=== PATIENT | male | born 1955 | race Caucasian/White ===

== ENCOUNTER 2018-01-13 18:01 | Inpatient (IN) ==
[2018-01-13] MEDS ORDERED: Aspirin 81 MG TAB.CHEW PO ONE (18:09)
--- NOTE | 2018-01-13 18:30 | Emergency Department Note ---
Disposition Clinical Impression: Elevated blood pressure reading Chest pain Qualifiers: Chest pain type: unspecified Qualified Code(s): R07.9 - Chest pain, unspecified Disposition: Admitted As Inpatient Condition: Good Referrals: Glory Torres MD [Primary Care Provider] - Yelena Kenny [Family Provider] - Forms: ED Satisfaction Letter Time of Disposition: 19:33 General Adult HPI - General Chief complaint: ED Chest Pain Stated complaint: CP,HTN Time Seen by Provider: 01/13/18 18:08 Source: patient Mode of arrival: ambulatory Limitations: no limitations Nursing Notes Reviewed: Yes Vital Signs Reviewed: Yes - History of Present Illness HPI Narrative: 62-year-old male with significant past medical history of hypertension, hyperlipidemia and diabetes presenting to the emergency Department chief complaint of chest pain. Patient states he has had chest pain on and off for the past couple of days along with worsening dyspnea. Patient was seen by his primary care physician today. They stated if he had any other chest pain to come to the emergency department. Patient states he had a stress test greater than 5 years ago. Has not followed up cardiology. Has no known stents or CABG. No COPD or asthma. He states his chest pain is an the lower sternum and radiates to the bilateral chest. Denies nausea or vomiting but does disclose diaphoresis with these symptoms. Patient has not tried anything at home for this. Patient states he notices his symptoms most when he is at rest. Pain Scale: 7 - Related Data Allergies Allergy/AdvReac Type Severity Reaction Status Date / Time No Known Allergies Allergy Verified 01/13/18 18:05 All systems ED: reviewed and negative except as stated. Cardiovascular: Reports: chest pain Respiratory: Reports: dyspnea Past Medical History - Past Medical History Attestation: Yes The following information was validated with the patient. Medical history: Reports: diabetes, hyperlipidemia, hypertension Psychiatric history: Reports: no psych history - Social History Smoking Status: Former smoker Smokeless Tobacco Status: No Alcohol use: Reports: none Drug use: Reports: none Physical Exam - General Limitations: no limitations General appearance: alert, in no apparent distress - Head Head exam: atraumatic, normocephalic, normal inspection - Eye Eye exam: Present: normal appearance. Absent: scleral icterus, conjunctival injection - ENT ENT exam: normal exam, mucous membranes moist - Neck Neck exam: Present: normal inspection, full ROM. Absent: tenderness, meningismus - Chest Chest inspection: Present: normal inspection, symmetric chest wall rise. Absent : tenderness, rash - Respiratory Respiratory exam: Present: normal lung sounds bilaterally. Absent: respiratory distress, wheezes - Cardiovascular Cardiovascular exam: Present: regular rate, normal rhythm, normal heart sounds - Abdominal Exam Abdominal exam: Present: soft, Non-Tender. Absent: distention, guarding, rebound - Extremities Exam Extremities exam: Present: normal inspection, full ROM - Neurological Exam Neurological exam: Present: alert, oriented X3 - Psychiatric Psychiatric exam: Present: normal affect, normal mood - Skin Skin exam: Present: warm, intact Course Course Narrative: 62-year-old male presenting to the emergency department for chest pain and dyspnea. Patient has had intermittent chest pain for the past few days. Seen by primary care physician today and told come to the emergency department if he has recurrent symptoms. Patient states he still having chest pain at this time. Has not had cardiac workup in greater than 5 years. We will perform a chest pain workup including troponin, EKG, chest x-ray. Also provide the patient with full dose aspirin and nitroglycerin for chest pain. Patient is alert and oriented 3 in the room with stable vital signs. Disposition most likely admission but pending results. Patient agrees this plan. - Reevaluation(s) Reevaluation #1: All patient's lab work and radiographs within normal limits. Patient's pain significantly better with sublingual nitroglycerin. Patient is alert and oriented 3 in the room. Stable vital signs. Blood pressure came down nicely with nitroglycerin. We will plan to admit the patient at this time for chest pain workup. Patient agrees with this plan. I spoke with the hospice on-call Dr. Loo who agrees to accept the patient at this time. Vital Signs Temperature 98.5 F 01/13/18 18:03 Pulse Rate 73 01/13/18 18:03 Respiratory Rate 18 01/13/18 18:03 Blood Pressure 195/106 01/13/18 18:03 O2 Sat by Pulse Oximetry 98 01/13/18 18:03 Temperature 98.5 F 01/13/18 18:03 Pulse Rate 73 01/13/18 18:03 Respiratory Rate 18 01/13/18 18:03 Blood Pressure 195/106 01/13/18 18:03 O2 Sat by Pulse Oximetry 98 01/13/18 18:03 Oxygen Delivery Oxygen Delivery Room Air Medical Decision Making - Medical Records Medical records reviewed: Yes I reviewed the patient's medical records. - Lab Data Lab results reviewed: Yes I reviewed the patient's lab results. Result diagrams: 01/13/18 18:21 01/13/18 18:21 Lab Results 01/13/18 01/13/18 01/13/18 Range/Units 18:21 18:21 18:21 WBC 7.5 (4.3-11.1) K/mcL RBC 4.54 (4.19-5.50) M/mcL Hgb 14.0 (12.9-16.9) g/dL Hct 40.4 (37.5-50.1) % MCV 89.0 (83.0-100.0) fL MCH 30.8 (28.0-33.3) pg MCHC 34.7 (31.6-35.5) g/dL RDW 12.8 (11.5-14.5) % Plt Count 212 (140-400) K/mcL MPV 9.6 (9.4-12.4) fL Immature Gran % 0.7 (0-4) % Seg Neutrophils % 58.0 % Lymphocytes % 29.3 % Monocytes % 6.7 % Eosinophils % 4.8 % Basophils % 0.5 % Neutrophils # 4.4 (1.6-8.9) K/mcL Lymphocytes # 2.2 (0.6-4.6) K/mcL Monocytes # 0.5 (0.0-1.3) K/mcL Eosinophils # 0.4 (0.0-0.6) K/mcL Basophils # 0.0 (0.0-0.2) K/mcL PT 10.3 (9.4-12.1) Seconds INR 1.0 APTT 27.1 (26.0-36.0) Seconds Sodium (136-145) mEq/L Potassium (3.5-5.1) mEq/L Chloride (98-107) mEq/L Carbon Dioxide (23-29) mEq/L BUN (8-23) mg/dL Creatinine (0.70-1.30) mg/dL Est GFR ( Amer) (> 60) Est GFR (Non-Af Amer) (> 60) BUN/Creatinine Ratio (6-26) Glucose (70-105) mg/dL Calculated Osmolality (280-300) Calcium (8.6-10.3) mg/dL Troponin I (< 0.04) ng/mL B-Natriuretic Peptide 10 (Less than 100) pg/mL 01/13/18 Range/Units 18:21 WBC (4.3-11.1) K/mcL RBC (4.19-5.50) M/mcL Hgb (12.9-16.9) g/dL Hct (37.5-50.1) % MCV (83.0-100.0) fL MCH (28.0-33.3) pg MCHC (31.6-35.5) g/dL RDW (11.5-14.5) % Plt Count (140-400) K/mcL MPV (9.4-12.4) fL Immature Gran % (0-4) % Seg Neutrophils % % Lymphocytes % % Monocytes % % Eosinophils % % Basophils % % Neutrophils # (1.6-8.9) K/mcL Lymphocytes # (0.6-4.6) K/mcL Monocytes # (0.0-1.3) K/mcL Eosinophils # (0.0-0.6) K/mcL Basophils # (0.0-0.2) K/mcL PT (9.4-12.1) Seconds INR APTT (26.0-36.0) Seconds Sodium 138 (136-145) mEq/L Potassium 3.9 (3.5-5.1) mEq/L Chloride 107 (98-107) mEq/L Carbon Dioxide 23 (23-29) mEq/L BUN 21 (8-23) mg/dL Creatinine 0.99 (0.70-1.30) mg/dL Est GFR ( Amer) > 60 (> 60) Est GFR (Non-Af Amer) > 60 (> 60) BUN/Creatinine Ratio 21 (6-26) Glucose 146 H (70-105) mg/dL Calculated Osmolality 292 (280-300) Calcium 8.9 (8.6-10.3) mg/dL Troponin I < 0.03 (< 0.04) ng/mL B-Natriuretic Peptide (Less than 100) pg/mL - Radiology Data Radiology results reviewed: Yes I reviewed the patient's radiology results. Chest X-Ray 01/13/18 18:09 IMPRESSION: No acute process. D/ / Paul Mccoy MD / Paul Mccoy MD Interpreting Provider: Paul Mccoy MD - EKG Data EKG #1 EKG attestation: Yes I reviewed and interpreted this EKG. EKG results narrative: Sinus rhythm. Nonspecific T wave abnormality. 72 bpm. SC interval 138, QRS 98 , QTc 385. No signs of acute ST segment elevation or ischemia. Attestation Statement - Attestation Attestation: I examined this patient and my medical decision-making was reviewed with the Resident Physician, Dr. Larry. I agree with the documented findings, disposition and treatment plan as described except to the extent set forth below. Patient's a 62-year-old male with history of hypertension, hyperlipidemia, diabetes who presents to the emergency department with chest discomfort. Patient has had cardiac evaluation in the past approximately 4 years ago had a heart catheter which he states was normal did not require stent placement. Patient also with significantly elevated blood pressure on arrival. Patient states he has been taking his medications as prescribed. Denies any associated shortness of breath, diaphoresis, no lightheadedness or syncope, no other associated symptoms. I agree with patient's physical exam findings as documented. Patient with significantly elevated blood pressure on arrival. Patient received aspirin and currently receiving a nitroglycerin trial with significant improvement in his blood pressure after one nitroglycerin pain has been reduced to 3 out of 10. We are continuing with nitroglycerin trial with the goal of pain-free. Patient's chest x-ray and lab evaluations all within normal limits. EKG showed a normal sinus rhythm with no acute ischemia. Patient will be admitted for further evaluation of chest pain and elevated blood pressure.
[2018-01-13 18:51] LABS: Basophils % 0.5 %; Eosinophils # 0.4 K/mcL (0.0-0.6); Eosinophils % 4.8 %; Hematocrit 40.4 % (37.5-50.1); Immature Granulocytes % 0.7 % (0-4); Lymphocytes # 2.2 K/mcL (0.6-4.6); Lymphocytes % 29.3 %; Mean Corpuscular HGB Conc 34.7 g/dL (31.6-35.5); Mean Corpuscular Hemoglobin 30.8 pg (28.0-33.3); Mean Platelet Volume 9.6 fL (9.4-12.4); Monocytes # 0.5 K/mcL (0.0-1.3); Monocytes % 6.7 %; Neutrophils # 4.4 K/mcL (1.6-8.9); Platelet Count 212 K/mcL (140-400); Red Blood Count 4.54 M/mcL (4.19-5.50); Red Cell Distribution Width 12.8 % (11.5-14.5)
[2018-01-13 18:57] LABS: Prothrombin Time 10.3 Seconds (9.4-12.1)
[2018-01-13 19:00] LABS: Activated Partial Thrombo Time 27.1 Seconds (26.0-36.0)
[2018-01-13] MEDS: Nitroglycerin 0.4 MG TAB.SUBL SL ONE ×2 (19:09→19:26)
[2018-01-13 19:10] LABS: Troponin I < 0.03 ng/mL (< 0.04)
[2018-01-13 19:15] LABS: BUN/Creatinine Ratio 21 (6-26); Blood Urea Nitrogen 21 mg/dL (8-23); Calcium 8.9 mg/dL (8.6-10.3); Carbon Dioxide 23 mEq/L (23-29); Chloride 107 mEq/L (98-107); Glucose 146 mg/dL (70-105); Osmolality,Calculated 292 (280-300); Potassium 3.9 mEq/L (3.5-5.1); Sodium 138 mEq/L (136-145); eGFR For African Americans > 60 (> 60); eGFR For Non-African Americans > 60 (> 60)
--- NOTE | 2018-01-13 19:40 | Internal Med History&Physical ---
<Suyapa Hurd - Last Filed: 01/13/18 21:02> Date of Encounter: 01/13/18 Time of Encounter: 19:38 Assessment and Plan (1) Chest pain Current visit: Yes Status: Acute 62 y M with cardiac risk factors presenting with substernal chest pain, relieved by NTG, worse on rest. Per Chrissie classification, chest pain atypical. Risk factors include: DM, Age, Hx of Dyslipidemia, HTN. Chest pain likely related to uncontrolled HTN, with goal of control of BP while inpatient. Per ED note, Patient has had cardiac evaluation in the past approximately 4 years ago and had a heart catheter which he states was normal and did not require stent placement. 12-lead ECG reviewed, no ST elevation indicative of ischemia. ECG in AM pending Chest X-Ray 01/13/18 18:09 No acute process Troponin < 0.03. Will order Serial troponins, however peak expected near 24 hr, with patient presenting near 24-hr kam Continuous telemetry NTG PRN for chest pain Discussed plan with patient and family, including patient may need continued follow-up with cardiology as outpatient. Pt and family agreed with plan and verbalized understanding. Qualifiers: Chest pain type: unspecified Qualified Code(s): R07.9 - Chest pain, unspecified (2) Hypertensive crisis Current visit: Yes Status: Acute As above. Control of BP with Serial monitoring of BP while inpatient. (3) HTN (hypertension) Current visit: Yes Status: Chronic Optimize HTN medication. Qualifiers: Hypertension type: essential hypertension Qualified Code(s): I10 - Essential (primary) hypertension (4) Diabetes mellitus Current visit: Yes Status: Acute Continue coverage, ISS. Adjust as needed. Continue Lyrica for neuropathic pain. Qualifiers: Diabetes mellitus type: type 2 Diabetes mellitus senior living insulin use: with senior living use Diabetes mellitus complication status: with neurologic complications Diabetes mellitus complication detail: with polyneuropathy Qualified Code(s): E11.42 - Type 2 diabetes mellitus with diabetic polyneuropathy; Z79.4 - intermodal customer service (current) use of insulin; Z79.4 - longterm ( current) use of insulin; Z79.4 - longterm (current) use of insulin; Z79.4 - longterm (current) use of insulin (5) Hyperlipidemia Current visit: Yes Status: Chronic Continue home meds. Qualifiers: Hyperlipidemia type: unspecified Qualified Code(s): E78.5 - Hyperlipidemia , unspecified (6) Anxiety Current visit: Yes Status: Acute Continue home meds. (7) DVT prophylaxis Current visit: Yes Status: Acute Mechanical prophylaxis with EPCD (8) Stopped smoking with greater than 40 pack year history Current visit: Yes Status: Chronic Pt states has not had low-dose CT. Recommended pt commence annual screening for lung cancer with low-dose CT, per USPTF guidelines. Pt and family verbalized understanding. Internal Medicine - H&P: HPI Chief complaint: Chest pain Admitted From: Home Plans for Post Hospital Care: Home History of present illness: Mr. Do is a 62 year old M with DM, HL, uncontrolled HTN, and anxiety presenting with substernal chest pain, of onset approx 24 hrs prior to admission. Quality: "squeezing" sensation and intermittent overnight. Pt states chest pain was worse on rest, although felt continued "tightness" on exertion. Rates pain at onset as 6/10. Took baby aspirin in morning following onset of pain, with minimal improvement. NTG in ED improved pain "somewhat", to a 3/10. Chest pain increases with breathing. Is tender on palpation. Is not positional. Endorses SOB and some intermittent dizziness with onset of chest pain. Denies nausea or vomiting. No diaphoresis. Pt states unable to walk long distance, however due to chronic neuropathic pain, denies due to calf or muscle cramping or SOB. At home monitoring, patient's SBP was in 170s in past two days. Pt is a former 50-year smoker. Has taken daily baby aspirin for past 8 years. Past Med Surg Social Fam HX - Past Medical History Medical history: diabetes, hyperlipidemia, hypertension Psychiatric history: no psych history - Social History Smoking Status: Former smoker Smokeless Tobacco Status: No Alcohol use: none Drug use: none Internal Medicine - H&P: Meds Amlodipine Besylate 10 mg PO DAILY 01/13/18 [History] Aspirin Enteric Coated [Aspirin EC] 81 mg PO DAILY 01/13/18 [History] Atorvastatin Calcium [Lipitor] 80 mg PO HS 01/13/18 [History] Buspirone HCl [Buspar] 5 mg PO TID 01/13/18 [History] Cyclobenzaprine HCl 5 mg PO TID 01/13/18 [History] Duloxetine HCl [Cymbalta] 60 mg PO DAILY 01/13/18 [History] Ergocalciferol (VITAMIN D2) [Vitamin D2] 50,000 unit PO FR 01/13/18 [History] Fenofibrate [Tricor] 54 mg PO DAILY 01/13/18 [History] Glimepiride [Amaryl] 4 mg PO QAM 01/13/18 [History] Insulin Glargine,Hum.rec.anlog [Lantus Solostar] 30 unit SQ HS 01/13/18 [History ] Liraglutide [Victoza 2-Kenneth] 0.6 mg SQ QAM 01/13/18 [History] Meloxicam [Meloxicam] 7.5 mg PO BID 01/13/18 [History] Metformin HCl [Glucophage] 1,000 mg PO BIDWM 01/13/18 [History] [place]-3 Acid Ethyl Esters [Lovaza] 2 gm PO BID 01/13/18 [History] Pregabalin [Lyrica] 50 mg PO TID 01/13/18 [History] Valsartan [Valsartan] 320 mg PO QAM 01/13/18 [History] 3 Allergy/AdvReac Type Severity Reaction Status Date / Time No Known Allergies Allergy Verified 01/13/18 18:05 All Systems PM: A 10-system review of systems was performed and is negative for pertinent findings except as documented above in the HPI. - Constitutional Vitals: Temp Pulse Resp BP Pulse Ox 98.5 F 73 18 195/106 98 01/13/18 18:03 01/13/18 18:03 01/13/18 18:03 01/13/18 18:03 01/13/18 18:03 Blood pressure at Exam L ARM 153/123 R ARM 167/110 General appearance: Present: cooperative, A&O X 3, pleasant, no acute distress, answers questions appropriately - Head Head exam: Present: atraumatic, normocephalic - Eye Eye exam: Present: EOMI. Absent: conjunctival injection, conjuntiva pink - Respiratory Respiratory exam: Present: CTAB. Absent: accessory muscle use, chest wall tenderness, rales, respiratory distress, wheezes - Cardiovascular Cardiovascular exam: Present: RRR, +S1, +S2. Absent: tachycardia - GI/Abdominal GI/Abdominal exam: Present: normal bowel sounds. Absent: distended, firm, pulsatile mass, tenderness, no peritoneal signs - Extremities Exam Extremities exam: Present: radial pulses palpable and symmetrical. Absent: calf tenderness, pedal edema - Psychiatric Psychiatric exam: Present: normal mood. Absent: agitated, anxious Internal Med - H&P Results - Labs CBC & Chem 7: 01/13/18 18:21 01/13/18 18:21 - Impressions 01/13/18 ED EKG 18:04:04 Sinus rhythm. 72 bpm. CA interval 138, QRS 98, QTc 385. EKG reviewed with Dr. Peck. ITS Impressions Chest X-Ray 01/13/18 18:09 IMPRESSION: No acute process. D/ / Paul Mccoy MD / Paul Mccoy MD Interpreting Provider: Paul Mccoy MD <Krystina Peck - Last Filed: 01/13/18 21:09> Date of Encounter: 01/13/18 Internal Medicine - H&P: HPI History of present illness: Mr. Do is a 62 year old male All Systems PM: A 10-system review of systems was performed and is negative for pertinent findings except as documented above in the HPI. - Constitutional Vitals: Temp Pulse Resp BP Pulse Ox 97.4 F L 65 16 165/98 99 01/13/18 20:34 01/13/18 20:34 01/13/18 20:34 01/13/18 20:34 01/13/18 20:34 Internal Med - H&P Results - Labs CBC & Chem 7: 01/13/18 18:21 01/13/18 18:21 - Attending Attestation I examined this patient and my medical decision-making was reviewed with the Resident Physician. I agree with the documented findings, disposition and treatment plan as described except to the extent set forth below. Mr Do is a 62 yo male who presents with uncontrolled HTN and chest pain. Admitted for HTN crisis. He is under the care of Dr Torres at [facility] and was just at PCP office today where 10mg norvasc was added to his existing diovan regimen. He reports that his BP was out of control in the last 4 days with SBP in 180s, DBP in 113. Developed sternal CP since yesterday, described to be of sternal location, radiate across chest, 7/10, pressure and burning sensation.Prior hx of smoking, quit many years ago. Has DMII on insulin. Reported LHC 5 years ago and was reported as "fine". Blood pressure improved with nitroglycerin tab in the ER EKG personally reviewed with rate of 72, normal sinus rhythm FINDINGS: The lungs are without acute focal process. There is no effusion or pneumothorax. The cardiomediastinal silhouette is stable. The osseous structures are stable. XR/XR chest 1V portable IMPRESSION: No acute process. ROS 14 point review of systems reviewed as best as possible given presentation. Pertinent positive or negative as per HPI or otherwise reviewed as negative General - AAO x 3 Psych - Appropriate affect/speech. No agitation Eyes - LIYA. Eye lids intact. No scleral icterus Neuro - No gross peripheral or central neuro deficits on inspection Heart - Sinus. RRR. S1 and S2 present. No added HS/murmurs appreciated. No elevated JVD appreciated. Lung - Adequate air entry b/l, No crackles/wheezes appreciated GI - Soft, non-tender. No hepatosplenomegaly/ascites. BS+ - No CVA/suprapubic tenderness or palpable bladder distension Skin - Intact. No rash/petechiae/ecchymosis. Warm extremities MSK - Joints with normal ROM. No joint swellings A/P HTN crisis with Chest pain - trend trop - control HTN with addition of norvasc, thiazide. Continue diovan - pulse ox, tele - monitor 24-48 hours - No overt evidence of ACS at current. Outpatient stress testing if CP persistent despite BP control DMII IDDMI - hold metformin - continue lantus, sulfonylurea - add ISS HLD Depression
[2018-01-13] MEDS ORDERED: Naloxone 0.4 MG/ML INJ IVP PRN ×2 (19:55→20:34)
[2018-01-13] MEDS ORDERED: Dextrose Gel 15 GM/37.5 ML TUBE PO PRN ×2 (19:58)
[2018-01-13] MEDS ORDERED: D5% in Water 1,000 ML IVC PRN (19:58)
[2018-01-13] MEDS ORDERED: *HR* Dextrose 50 % in Water (Syg) 50 ML SYRINGE IVP PRN (19:58)
[2018-01-13] MEDS: Insulin LISPRO 300 UNITS/3 ML VIAL SQ SCH (22:19)
[2018-01-13] MEDS: Insulin DETEMIR 100 UNIT/ML X5UNITS SQ SCH (22:20)
[2018-01-13] MEDS: Pregabalin 50 MG CAPSULE PO SCH (22:21)
[2018-01-13] MEDS: amLODIPine 5 MG TABLET PO SCH (22:21)
[2018-01-14] MEDS: Insulin LISPRO 300 UNITS/3 ML VIAL SQ SCH ×4 (08:25→21:32)
[2018-01-14] MEDS: Aspirin 81 MG TAB.CHEW PO SCH (08:27)
[2018-01-14] MEDS: Pregabalin 50 MG CAPSULE PO SCH ×3 (08:27→21:32)
[2018-01-14] MEDS: *HR* Glimepiride 4 MG TABLET PO SCH (08:27)
[2018-01-14] MEDS: Valsartan 160 MG TABLET PO SCH (08:27)
--- NOTE | 2018-01-14 11:00 | Cardiology Consult Note ---
Date of Encounter: 01/14/18 Time of Encounter: 09:30 Assessment and Plan (1) HTN (hypertension) Current Visit: Yes Status: Chronic Per cardiology: -Presents with HTN with BP at home 200/110s. -Reports compliance with medications. -On diuretic, ARB, CCB. -BP currently 150-170s. -Will add beta gosia, coreg 3.125mg BID. Qualifiers: Hypertension type: essential hypertension Qualified Code(s): I10 - Essential (primary) hypertension (2) Atypical chest pain Current Visit: Yes Status: Acute Per cardiology: -Atypical, non-cardiac chest pain. -Chest pain reproduceable with palpation. -ALso reports chest pain at rest and lessens with exertion. -Troponins negative x4. -No acute ischemic ECG changes, -Does have risk factors for CAD with HTN, HLD, DM, tobacco history. -Reports previous stress test "many years ago, normal." Denies previous LHC. -Will check echocardiogram. -Can consider outpatient stress if has recurrence of chest pain. Discussion w patient/family: The assessment and plan as outlined above was discussed with the patient who expressed understanding and agreement. All questions were answered. Thank you for involving us in the care of your patient. Please call with any questions. Discussed and reviewed with . History of Present Illness Consult date: 01/14/18 Requesting physician: Asia Rossi Consult reason: chest pain Chief complaint: high BP History of present illness: Mr. Do is a 62 year old male with a relevant past medical history of HTN, DM , previous smoking. Patient presented to [facility] with chief complaint of HTN. Patient reports BP at home 200/110s. Reports was taking his medications appropriately. Patient reports chest pain while sitting and states getting up and walking helps chest pain. Also reports chest wall tender to palpation. Denies shortness of breath or fatigue. Past Med Surg Social Fam HX - Past Medical History Attestation: Yes The following information was validated with the patient. Source: patient Medical history: diabetes, hyperlipidemia, hypertension Psychiatric history: no psych history - Social History Smoking Status: Former smoker Smokeless Tobacco Status: No Alcohol use: none Drug use: none - Family History Mother Living Status: Age at : 51 Cause of : cancer Hx Family Cancer: Yes Father Age at : 42 Cause of : anuersym Medications and Allergies Amlodipine Besylate 10 mg PO DAILY 01/13/18 [History] Aspirin Enteric Coated [Aspirin EC] 81 mg PO DAILY 01/13/18 [History] Atorvastatin Calcium [Lipitor] 80 mg PO HS 01/13/18 [History] Buspirone HCl [Buspar] 5 mg PO TID 01/13/18 [History] Cyclobenzaprine HCl 5 mg PO TID 01/13/18 [History] Duloxetine HCl [Cymbalta] 60 mg PO DAILY 01/13/18 [History] Ergocalciferol (VITAMIN D2) [Vitamin D2] 50,000 unit PO FR 01/13/18 [History] Fenofibrate [Tricor] 54 mg PO DAILY 01/13/18 [History] Glimepiride [Amaryl] 4 mg PO QAM 01/13/18 [History] Insulin Glargine,Hum.rec.anlog [Lantus Solostar] 30 unit SQ HS 01/13/18 [History ] Liraglutide [Victoza 2-Kenneth] 0.6 mg SQ QAM 01/13/18 [History] Meloxicam [Meloxicam] 7.5 mg PO BID 01/13/18 [History] Metformin HCl [Glucophage] 1,000 mg PO BIDWM 01/13/18 [History] [place]-3 Acid Ethyl Esters [Lovaza] 2 gm PO BID 01/13/18 [History] Pregabalin [Lyrica] 50 mg PO TID 01/13/18 [History] Valsartan [Valsartan] 320 mg PO QAM 01/13/18 [History] 3 Allergy/AdvReac Type Severity Reaction Status Date / Time No Known Allergies Allergy Verified 01/13/18 18:05 All Systems Review: The remainder of the systems were reviewed and are negative - Cardiovascular Cardiovascular: as per HPI, chest pain at rest Physical Examination Vital Signs, Last 4 Hours Temp Pulse Resp BP Pulse Ox 01/14/18 07:40 97.6 F 66 15 156/98 99 General: Conversant, No Apparent Distress HEENT: Atraumatic, Normocephaly, Mucus Membranes Moist Neck: No JVD, Normal carotid pulses Cardiac: Reg Rate and Rhythm, Normal S1 and S2, No Murmur Lungs: Normal Breath Sounds, No Wheeze, Rales, Rhonchi Neuro: Alert and responsive, No focal deficits noted Abdomen: Soft, Non-Tender Skin: No rashes noted on visualized skin Musculoskeletal: Other (Chest wall tender to palpation. ) Extremities: No Clubbing, No Cyanosis, No Edema, Normal Pulses Results 01/13/18 18:21 01/13/18 18:21 Lab Results Impressions Chest X-Ray 01/13/18 18:09 IMPRESSION: No acute process. D/ / Paul Mccoy MD / Paul Mccoy MD Interpreting Provider: Paul Mccoy MD Active Medications Acetaminophen (Tylenol) 650 mg PO Q6HR PRN PRN Reason: Headache Stop: 07/16/18 09:21 Amlodipine Besylate (Norvasc) 10 mg PO HS DAPHNE PRN Reason: Protocol Stop: 07/15/18 21:01 Last Admin: 01/13/18 22:21 Dose: 10 mg Aspirin (Aspirin) 81 mg PO DAILY DAPHNE Stop: 07/16/18 09:01 Last Admin: 01/14/18 08:27 Dose: 81 mg Atorvastatin Calcium (Lipitor) 80 mg PO HS DAPHNE Stop: 07/15/18 21:01 Last Admin: 01/13/18 22:21 Dose: 80 mg Buspirone HCl (Buspar) 5 mg PO TID DAPHNE Stop: 07/15/18 21:01 Last Admin: 01/14/18 08:27 Dose: 5 mg Carvedilol (Coreg) 3.125 mg PO BIDWM DAPHNE PRN Reason: Protocol Stop: 07/16/18 10:31 Chlorthalidone (Chlorthalidone) 25 mg PO DAILY [facility] Stop: 07/16/18 09:01 Last Admin: 01/14/18 08:27 Dose: 25 mg Dextrose/Water (Dextrose 50% (Syg)) 25 ml IVP AD PRN PRN Reason: Hypoglycemia Stop: 07/15/18 19:59 Duloxetine HCl (Cymbalta) 60 mg PO DAILY [facility] Stop: 07/16/18 09:01 Last Admin: 01/14/18 08:27 Dose: 60 mg Glimepiride (Amaryl) 4 mg PO DAILY [facility] Stop: 07/16/18 09:01 Last Admin: 01/14/18 08:27 Dose: 4 mg Glucagon (Glucagen) 1 mg IM ONCE PRN PRN Reason: Hypoglycemia Stop: 07/15/18 19:59 Glucose (Gluctose) 15 gm PO ONCE PRN PRN Reason: Hypoglycemia Stop: 07/15/18 19:59 Glucose (Gluctose) 30 gm PO ONCE PRN PRN Reason: Hypoglycemia Stop: 07/15/18 19:59 Dextrose (Dextrose 5%) 1,000 mls @ 100 mls/hr IVC .Q10H PRN PRN Reason: HYPOGLYCEMIA Stop: 07/15/18 19:59 Insulin Detemir (Levemir) 30 unit SQ HS [facility] Stop: 07/15/18 21:01 Last Admin: 01/13/18 22:20 Dose: 30 unit Insulin Human Lispro (Humalog) 0 units SQ TIDAC [facility] PRN Reason: Protocol Stop: 07/16/18 07:31 Last Admin: 01/14/18 08:25 Dose: Not Given Insulin Human Lispro (Humalog) 0 units SQ HS [facility] PRN Reason: Protocol Stop: 07/15/18 21:01 Last Admin: 01/13/18 22:19 Dose: Not Given Naloxone HCl (Narcan) 0.4 mg IVP Q2MIN PRN PRN Reason: SEE COMMENTS Stop: 07/15/18 20:35 Pregabalin (Lyrica) 50 mg PO TID [facility] Stop: 07/15/18 21:01 Last Admin: 01/14/18 08:27 Dose: 50 mg Valsartan (Diovan) 320 mg PO DAILY [facility] Stop: 07/16/18 09:01 Last Admin: 01/14/18 08:27 Dose: 320 mg Laboratory Tests 01/13/18 01/13/18 01/13/18 18:21 18:21 22:42 Hgb 14.0 Creatinine 0.99 Troponin I < 0.03 < 0.03 01/14/18 01/14/18 05:54 09:26 Hgb Creatinine Troponin I < 0.03 < 0.03 - Imaging and Cardiology Chest Xray: report reviewed Echo: pending - EKG Interpretation EKG results cardiology: personally reviewed (ECG with SR.), other (Telemetry reviewed with average HR previous 12 hours noted to be 70, SR. PVCs and PACs noted.) Consult Discharge Plan - Plan Referrals: Glory Torres MD [Primary Care Provider] - Yelena Kenny [Family Provider] -
--- NOTE | 2018-01-14 15:18 | Electrocardiograph Report ---
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
--- NOTE | 2018-01-14 15:36 | Electrocardiograph Report ---
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
--- NOTE | 2018-01-14 15:39 | Discharge Summary ---
- NOTES TO OUTPATIENT PROVIDER Notes to Outpatient Provider: PCP within the week, cardiology as directed. 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 Do is a 62 year old male who presented with substernal chest pain relieved by nitroglycerin,worse on rest. He has a history of diabetes mellitus , hyperlipidemia, uncontrolled hypertension and anxiety. His blood pressure was 195/106 on presentation and patient reported had been in the 180s over the last several days at home. He has a history of cardiac evaluation 4 years ago with a heart catheter which he states was normal and required no stents or interventions. 12-lead ECG was reviewed and sinus rhythm with no ST elevation. Chest x-ray with no acute processes troponins were negative at 0.03. Cardiology was consulted and saw the patient. Echocardiogram was obtained and reviewed. They feel this is atypical chest pain and he needs to have better blood pressure control. They added Coreg 3.125 mg twice a day. He will follow up in the office as an outpatient and they will determine the need for an outpatient stress test. Patient is in agreement with this plan of care and is calling his for a ride home. Echocardiogram impression LVEF 60-65%. Normal LV chamber size, wall thickness and function. Mild left ventricular diastolic dysfunction. Normal right ventricular structure and function. Unable to estimate are VSP due to lack of TR jet. No significant valvular dysfunction. Rest echo findings with all wall segments showing normal motion. Discharge discussed with: patient, nurse - Time Spent with Patient Total time spent providing and/or coordinating discharge services: Less than 30 minutes - Discharge Medications Prescriptions: amLODIPine [Norvasc] 10 mg PO HS #30 tablet Carvedilol [Coreg] 3.125 mg PO BIDWM #30 tablet Home Medications: Amlodipine Besylate 10 mg PO DAILY 01/13/18 [History] Aspirin Enteric Coated [Aspirin EC] 81 mg PO DAILY 01/13/18 [History] Atorvastatin Calcium [Lipitor] 80 mg PO HS 01/13/18 [History] Buspirone HCl [Buspar] 5 mg PO TID 01/13/18 [History] Cyclobenzaprine HCl 5 mg PO TID 01/13/18 [History] Duloxetine HCl [Cymbalta] 60 mg PO DAILY 01/13/18 [History] Ergocalciferol (VITAMIN D2) [Vitamin D2] 50,000 unit PO FR 01/13/18 [History] Fenofibrate [Tricor] 54 mg PO DAILY 01/13/18 [History] Glimepiride [Amaryl] 4 mg PO QAM 01/13/18 [History] Insulin Glargine,Hum.rec.anlog [Lantus Solostar] 30 unit SQ HS 01/13/18 [History ] Liraglutide [Victoza 2-Kenneth] 0.6 mg SQ QAM 01/13/18 [History] Meloxicam 7.5 mg PO BID 01/13/18 [History] Metformin HCl [Glucophage] 1,000 mg PO BIDWM 01/13/18 [History] Roy-3 Acid Ethyl Esters [Lovaza] 2 gm PO BID 01/13/18 [History] Pregabalin [Lyrica] 50 mg PO TID 01/13/18 [History] Valsartan 320 mg PO QAM 01/13/18 [History] Carvedilol [Coreg] 3.125 mg PO BIDWM #30 tablet 01/14/18 [Rx] amLODIPine [Norvasc] 10 mg PO HS #30 tablet 01/14/18 [Rx] Allergies/Adverse Reactions: 3 Allergy/AdvReac Type Severity Reaction Status Date / Time No Known Allergies Allergy Verified 01/13/18 18:05 Date of admission: 01/13/18 19:33 Primary care physician: Glory Torres MD Consults: 01/14/18 09:19 Consult to Cardiology [CONS] Routine Comment: Consulting Provider: Cardiology Megan Reason for Consult: chest pain, htn uncontrolled Time Notified: 09:20 Call Completed: Yes Discharging clinician: Asia Rossi Anticipated date of discharge: 01/14/18 - Constitutional Vitals: Temp Pulse Resp BP Pulse Ox 97.6 F 69 15 152/88 97 01/14/18 11:32 01/14/18 11:32 01/14/18 11:32 01/14/18 11:32 01/14/18 11:32 General appearance: Present: cooperative, A&O X 3, pleasant, no acute distress, answers questions appropriately - Head Head exam: Present: atraumatic, normocephalic - Eye Eye exam: Present: PERRL, conjuntiva pink, sclera anicteric Pupils: Present: PERRL - Neck Neck exam general surgery: Present: supple, trachea midline. Absent: lymphadenopathy - Respiratory Respiratory exam: Present: chest wall tenderness, CTAB. Absent: accessory muscle use, rales, rhonchi, wheezes - Cardiovascular Cardiovascular exam: Present: RRR, +S1, +S2. Absent: diastolic murmur, gallop, rubs, systolic murmur - GI/Abdominal GI/Abdominal exam: Present: normal bowel sounds, soft, no peritoneal signs. Absent: distended, tenderness - Extremities Exam Extremities exam: Present: warm, radial pulses palpable and symmetrical. Absent : calf tenderness, cyanotic, joint swelling, pedal edema - Neurological Exam Neurological exam: Present: alert, CN II-XII intact, normal gait, oriented X3, no focal deficits. Absent: pronater drift, facial droop, speech deficit - Skin Skin exam: Present: dry, intact, normal color, warm - Patient Status Disposition: Home, Self-Care Condition: Good Functional capacity at discharge: independent ambulation Overall status at discharge: patient is progressing back to baseline - Discharge Instructions Follow Up With: Glory Torres MD [Primary Care Provider] - Yelena Kenny [Family Provider] - - Diet and Activity Activity: resume usual activities as tolerated Diet: diabetic diet, low fat, low cholesterol, low salt diet - VTE Documentation of Mechanical Device: Intermittent pneumatic compression device
[2018-01-14] MEDS: Acetaminophen 325 MG TABLET PO PRN (21:31)
[2018-01-14] MEDS: Insulin DETEMIR 100 UNIT/ML X5UNITS SQ SCH (21:32)
[2018-01-14] MEDS: amLODIPine 5 MG TABLET PO SCH (21:32)
[2018-01-15 04:38] LABS: Hematocrit 47.7 % (37.5-50.1); Mean Corpuscular Hemoglobin 30.5 pg (28.0-33.3); Mean Corpuscular Volume 89.7 fL (83.0-100.0); Mean Platelet Volume 9.7 fL (9.4-12.4); Platelet Count 233 K/mcL (140-400); Red Blood Count 5.32 M/mcL (4.19-5.50); Red Cell Distribution Width 12.9 % (11.5-14.5)
[2018-01-15 04:39] LABS: Hemoglobin 16.2 g/dL (12.9-16.9)
[2018-01-15 05:00] LABS: BUN/Creatinine Ratio 21 (6-26); Blood Urea Nitrogen 20 mg/dL (8-23); Calcium 9.2 mg/dL (8.6-10.3); Carbon Dioxide 25 mEq/L (23-29); Chloride 105 mEq/L (98-107); Glucose 86 mg/dL (70-105); Osmolality,Calculated 286 (280-300); Potassium 3.5 mEq/L (3.5-5.1); Sodium 137 mEq/L (136-145); eGFR For African Americans > 60 (> 60); eGFR For Non-African Americans > 60 (> 60)
[2018-01-15 07:52] VITALS: BP 140/82
[2018-01-15] MEDS: Insulin LISPRO 300 UNITS/3 ML VIAL SQ SCH (08:00)
[2018-01-15] MEDS: Valsartan 160 MG TABLET PO SCH (08:15)
[2018-01-15] MEDS: Aspirin 81 MG TAB.CHEW PO SCH (08:15)
[2018-01-15] MEDS: Acetaminophen 325 MG TABLET PO PRN (08:16)
[2018-01-15] MEDS: *HR* Glimepiride 4 MG TABLET PO SCH (08:16)
[2018-01-15] MEDS: Pregabalin 50 MG CAPSULE PO SCH (08:16)
--- NOTE | 2018-01-15 11:22 | Internal Med Progress Note ---
Date of Encounter: 01/15/18 Time of Encounter: 11:20 - Assessment and plan (1) Anxiety Status: Chronic Assessment and plan: Anxiety is controlled this morning he feels very well (2) Atypical chest pain Status: Acute Assessment and plan: No chest pain overnight or today. Patient felt the chest pain was related to his high blood pressure Chest pain workup was negative Provided with prescriptions for his new antihypertensive regime. 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 He will follow-up with cardiology as directed as well as his PCP (5) Hyperlipidemia Status: Chronic Assessment and plan: Continue statin Qualifiers: Hyperlipidemia type: unspecified Qualified Code(s): E78.5 - Hyperlipidemia , unspecified - Subjective Interval history: Patient was to be discharged yesterday and right before he left they checked his blood pressure was elevated. The decision to hold him overnight and see how it settled out with all the new additions of medications yesterday. He did well overnight and his blood pressures well controlled overnight and this morning so the patient has been deemed ready for discharge. He is in agreement with the plan. Discussed a low-salt diet and lifestyle modifications. He verbalized understanding and has no further questions. He has no complaints of headache, chest pain, dizziness, syncope, abdominal pain, fevers, chills or other complaints. He states he feels very well today. - Constitutional Vitals: Temp Pulse Resp BP Pulse Ox 98.0 F 77 16 140/82 95 01/15/18 07:42 01/15/18 07:42 01/15/18 07:42 01/15/18 07:42 01/15/18 07:42 General appearance: Present: cooperative, A&O X 3, pleasant, no acute distress, answers questions appropriately - Head Head exam: Present: atraumatic, normocephalic - Eye Eye exam: Present: PERRL, conjuntiva pink, sclera anicteric Pupils: Present: PERRL - Neck Neck exam general surgery: Present: supple, trachea midline. Absent: lymphadenopathy - Respiratory Respiratory exam: Present: CTAB. Absent: accessory muscle use, rales, rhonchi, wheezes - Cardiovascular Cardiovascular exam: Present: RRR, +S1, +S2. Absent: diastolic murmur, gallop, rubs, systolic murmur - GI/Abdominal GI/Abdominal exam: Present: normal bowel sounds, soft, no peritoneal signs. Absent: distended, tenderness - Extremities Exam Extremities exam: Present: warm, radial pulses palpable and symmetrical. Absent : calf tenderness, cyanotic, pedal edema - Neurological Exam Neurological exam: Present: alert, CN II-XII intact, normal gait, oriented X3, no focal deficits, strengths equal and symetr throughout. Absent: pronater drift, facial droop, speech deficit - Skin Skin exam: Present: dry, intact, normal color, warm Internal Medicine: Result - Labs CBC & Chem 7: 01/15/18 03:08 01/15/18 03:08 Labs: Short CBC 01/15/18 Range/Units 03:08 WBC 13.2 H D (4.3-11.1) K/mcL Hgb 16.2 D (12.9-16.9) g/dL Hct 47.7 (37.5-50.1) % Plt Count 233 (140-400) K/mcL BMP 01/15/18 03:08 Sodium 137 Potassium 3.5 Chloride 105 Carbon Dioxide 25 BUN 20 Creatinine 0.97 Glucose 86 Calcium 9.2 - ABG Interpretation ABG results: PT/INR, D-dimer PT 10.3 Seconds (9.4-12.1) 01/13/18 18:21 - VTE Documentation of Mechanical Device: Intermittent pneumatic compression device Consult Discharge Plan - Plan Instructions: Chest Pain (DC), Chronic Hypertension (DC) Additional Instructions: Follow-up appointments: If there is not an appointment listed below, please call your physician and schedule a follow-up appointment. If you have congestive heart failure and your symptoms return, make an appointment with your physician. Medication List: Carry an up to date list of medications you are taking at all time. We have given you an updated medication list including any new medications that you have been prescribed. Please provide that list to your primary provider Symptoms: If your condition changes or you experience any of the following symptoms, notify your physician immediately: Unusual or worsening pain, fever, persistent nausea and vomiting, bleeding, increase in swelling (especially in your legs), sudden weight gain, extreme dizziness, chest pain, increased drainage or redness from a wound or incision. Go to the emergency department if you experience a problem with breathing. Weights: If you have a history of swelling or shortness of breath, weigh yourself daily and notify your physician if you have a weight gain of two or more pounds in one day or 5 or more pounds in a week. If you experience any of the warning signs for stroke: Sudden numbness or weakness of the face, arm or leg; especially on one side of the body, sudden confusion, trouble speaking or understanding, sudden trouble seeing in one or both eyes, sudden trouble walking, dizziness, loss of balance or coordination, sudden sever headache with no cause; Call 911 or go to the emergency room. Stroke is a medical emergency. Some risk factors for stroke: Age, cigarette smoking, diabetes, excessive alcohol consumption, family history , high blood pressure, overweight, physical inactivity, prior stroke, heart attack, diagnosis of carotid artery stenosis or other artery disease. If you smoke, STOP: Smoking or tobacco use significantly increases your risk of heart and lung disease. Your chance of disease greatly increases if you continue to smoke. For more information, call the [place] tobacco quit line for smoking cessation -NOW ( ) Referrals: Glory Torres MD [Primary Care Provider] - Yelena Kenny [Family Provider] -
== END 2018-01-15 10:20 | disposition home or self-care (01) | DRG 313 ==
LOC: 3BNU 18:01 → EMEROO 18:01 → 3BNU 20:09
PROVIDERS: ADMIT Internal Medicine; ATTEND Registered Nurse